=== PATIENT | female | born 1990 | race Caucasian/White ===

== ENCOUNTER 2019-07-13 00:23 | Emergency (ER) | payer BC, MEDICAID ==
[2019-07-13] MEDS ORDERED: DIPHENHYDRAMINE HCL 50 MG/ML VIAL IVP ONE (00:34)
[2019-07-13] MEDS ORDERED: METHYLPREDNISOLONE PF 125MG/VIAL IVP ONE (00:34)
--- NOTE | 2019-07-13 00:41 | Emergency Department Record ---
History of Present Illness - General Chief complaint: Allergic Reaction Stated complaint: ALLERGIC REACTION Time Seen by Provider: 07/13/19 00:32 Source: Patient Mode of Arrival: Ambulatory Limitations: No limitations - History of Present Illness Initial Comments: The patient is here due to developing an itchy rash all over with swelling to her face and hands after using a new facial cleanser. She denies any voice changes, fever, chills, trouble breathing or swallowing. She has no hx of similar problems and it is the first time she used the facial cleanser. MD Complaint: Allergic reaction, Hives, Facial swelling Onset/Timin -: Minutes(s) Exposure: Other Symptoms: Itching, Rash, Facial swelling, Lip swelling Severity: Moderate Treatment Prior to Arrival: None Previous Allergy History: None - Related Data Previous Rx's Medication Instructions Recorded Prednisone [Prednisone 20Mg] 40 mg PO DAILY #8 tab 07/13/19 Allergies Allergy/AdvReac Type Severity Reaction Status Date / Time No Known Drug Allergies Allergy Verified 07/13/19 00:33 Travel Screening - Travel/Exposure Within Last 30 Days Have you traveled within the last 30 days?: No - Travel/Exposure Within Last Year Have you traveled outside the [place] in the last year?: No - Additonal Travel Details Have you been exposed to anyone with a communicable illness?: No - Travel Symptoms Symptom Screening: None Review of Systems Constitutional: Denies: Chills, Fever Eyes: Denies: Eye discharge ENT: Denies: Congestion Respiratory: Denies: Cough, Dyspnea Past Medical History - SOCIAL HISTORY Smoking Status: Never smoker Alcohol Use: None Drug Use: Occasional Drug Use Detail:: Marijuana - RESPIRATORY Hx Respiratory Disorders: No - CARDIOVASCULAR Hx Cardio Disorders: No - NEURO Hx Neuro Disorders: No - GI Hx GI Disorders: No - Hx Genitourinary Disorders: No Comment:: PID - ENDOCRINE Hx Endocrine Disorders: No - PSYCH Hx Psych Problems: No Family Medical History Any Significant Family History?: No Physical Exam - General General Appearance: Alert, Oriented x3, Cooperative, No acute distress - Head Head exam: Atraumatic, Normocephalic - Eye Eye exam: PERRL. negative: Normal appearance, Conjunctival injection - ENT ENT exam: negative: Normal exam (There is very slight edema to the facial area with very mild erythema.) Throat exam: Normal inspection. negative: Tonsillar erythema, Tonsillomegaly, Tonsillar exudate - Neck Neck exam: Normal inspection, Full ROM. negative: Tenderness - Respiratory Respiratory exam: Normal lung sounds bilaterally. negative: Respiratory distress - Cardiovascular Cardiovascular Exam: Regular rate, Normal rhythm, Normal heart sounds - GI/Abdominal GI/Abdominal exam: Soft, Normal bowel sounds. negative: Tenderness - Extremities Extremities exam: negative: Normal inspection (There is a faint erythematous rash to the hands and feet.) - Neurological Neurological exam: Alert, Normal gait. negative: Abnormal gait, Motor sensory deficit - Skin Skin exam: Urticaria (There is a diffuse mild urticarial rash to the arms and chest.) Course Vital Signs 07/13/19 00:35 Pulse Rate [ 129 H Left] Respiratory 24 Rate Pulse Ox 97 - Reevaluation(s) Reevaluation #1: The patient is doing better at this time and the itching and rash are improving. 07/13/19 00:59 Reevaluation #2: The patient is doing a lot better at this time. Her rash is at least 50% better and the itching has resolved. There is no SOB, TRISHA, or any trouble swallowing. 07/13/19 01:29 Reevaluation #3: The patient is doing a lot better at this time. Her symptoms are 90% resolved and she is ready for home. There has been no TRISHA, SOB, or any trouble swallowing and her lip swelling has resolved. 07/13/19 02:00 Disposition Disposition: Discharge Clinical Impression: Allergic reaction Qualifiers: Encounter type: initial encounter Qualified Code(s): T78.40XA - Allergy, unspecified, initial encounter Disposition: Home, Self-Care Condition: (2) Stable Instructions: General Allergic Reaction (ED) Additional Instructions: Please continue the Benadryl for the next 4 days along with the Prednisone. Please see your doctor if not better by Monday and return to the ER for any worsening symptoms. Prescriptions: Prednisone [Prednisone 20Mg] 40 mg PO DAILY #8 tab Forms: Patient Portal Access Time of Disposition: 01:59 Quality - Quality Measures Quality Measures: N/A - Blood Pressure Screening View Details: Yes Does Patient Have Any of the Following: No Blood Pressure Classification: Normal BP Reading Systolic Measurement: 96 Diastolic Measurement: 63 Screening for High Blood Pressure: < Normal BP, F/U Not Required > [[id number]]
== END 2019-07-13 02:12 | disposition home or self-care (01) ==
LOC: ER 00:23
DX: L50.0 Allergic urticaria (principal)
CPT/HCPCS: 96374; 96375; 99284; J1200; J2930